=== PATIENT | male | born 1955 | race Caucasian/White ===

== ENCOUNTER 2022-06-09 16:08 | Outpatient (CLI) | payer MEDICARE ==
--- NOTE | 2022-06-09 19:08 | XRAY Report ---
PROCEDURE: Lumbar Spine 2 View INDICATIONS: LOW BACK PAIN TECHNIQUE: 2 views of the lumbar spine were acquired. COMPARISON: None. FINDINGS: Bones: 5 [id number] vertebrae are present. There is normal bony alignment. No vertebral body compression fractures. No suspicious bony lesions. Prominent lower lumbar facet arthropathy. Questi on canal stenosis. Soft tissues: Overlying bowel gas pattern is normal. No suspicious soft tissue calcifications. IMPRESSION: Lower lumbar degenerative change. Suspect canal stenosis. Comment: Lumbar spine MRI may be helpful. Reviewed by: Fernando Vann MD on 06/09/2022 7:06 PM PST Approved by: Fernando Vann MD on 06/09/2022 7:06 PM PST Station ID: [id number]
== END 2022-06-09 16:09 | disposition home or self-care (01) ==
LOC: DI 16:08
PROVIDERS: ATTEND Student in an Organized Health Care Education/Training Program
DX: M47.816 Spondylosis without myelopathy or radiculopathy, lumbar region (principal)

== ENCOUNTER 2023-04-19 12:52 | Outpatient (CLI) | payer MEDICARE ==
--- NOTE | 2023-04-19 14:50 | CT Report ---
PROCEDURE: Low Dose Lung Cancer Screen INDICATIONS: SCREENING FOR LUNG CA TECHNIQUE: A CT scan of the chest was performed. Intravenous contrast media was not administered. Images were re corded and evaluated at appropriate window settings. Reformats: axial MIP of the chest, coronal and s agittal. For radiation dose reduction, the following was used: automated exposure control, adjustment of mA and/or kV according to patient size. COMPARISON: None. FINDINGS: Image quality: Excellent. Prior cancer history: None. Lungs and pleura: No pleural effusions. No pneumothorax. There is a small 1-2 millimeter nodule invo lving the patient's right upper lobe anteriorly. No other significant pulmonary nodular densities are identified. No focal lung infiltrate is seen. Mediastinum: Heart size is normal. No pericardial effusion. No large vessel abnormality. No mediastin al adenopathy by size criteria. Coronary artery and atherosclerotic calcifications are present. Chest wall and lower neck: Thyroid is unremarkable. No axillary or supraclavicular adenopathy by size . Bones: No aggressive osseous abnormality. Upper Abdomen: Unremarkable. IMPRESSION: Lung RAD: 2 - Benign. Recommendation: Continue annual screening in 12 Months with LDCT Non-Lung Significant Findings: Coronary artery and atherosclerotic vascular calcifications. Reviewed by: Ramin Patel MD on 04/19/2023 2:49 PM PST Approved by: Ramin Patel MD on 04/19/2023 2:49 PM PST Station ID: [id number]
== END 2023-04-19 12:53 | disposition home or self-care (01) ==
LOC: DI 12:52
PROVIDERS: ATTEND Student in an Organized Health Care Education/Training Program
DX: Z12.2 Encounter for screening for malignant neoplasm of respiratory organs (principal); F17.210 Nicotine dependence, cigarettes, uncomplicated; I25.10 Atherosclerotic heart disease of native coronary artery without angina pectoris

== ENCOUNTER 2023-09-20 12:19 | Outpatient (CLI) | payer MEDICARE ==
--- NOTE | 2023-09-20 16:54 | XRAY Report ---
PROCEDURE: Chest 2V INDICATIONS: SMOKER/HYPERHIDROSIS TECHNIQUE: 2 views of the chest were acquired. COMPARISON: 12/14/2020. CT 04/19/2023. FINDINGS: Surgical changes and devices: None. Lungs and pleura: No pleural effusions or pneumothorax. Lungs are clear. Mediastinum: Mediastinal contours appear normal. Heart size is normal. Bones and chest wall: No suspicious bony lesions. Overlying soft tissues appear unremarkable. IMPRESSION: No acute cardiopulmonary process. Reviewed by: Nael Stokes MD on 09/20/2023 4:35 PM PDT Approved by: Nael Stokes MD on 09/20/2023 4:35 PM PDT Station ID: [id number]
== END 2023-09-20 12:20 | disposition home or self-care (01) ==
LOC: DI 12:19
PROVIDERS: ATTEND Student in an Organized Health Care Education/Training Program
DX: R61 Generalized hyperhidrosis (principal); F17.200 Nicotine dependence, unspecified, uncomplicated